=== PATIENT | female | born 1990 | race Caucasian/White ===

== ENCOUNTER 2024-08-27 17:17 | Observation (INO) | payer OTHER ==
[2024-08-27 18:58] LABS: Basophils # (A) 0.05 10*3/uL (0.00-0.10); Basophils % (A) 1.1 %; Eosinophils # (A) 0.04 10*3/uL (0.04-0.35); Eosinophils % (A) 0.8 %; HGB 13.4 g/dL (12.0-15.0); Lymphocytes # (A) 1.23 10*3/uL (0.90-5.00); Lymphocytes % (A) 25.9 %; MCH 30.7 pg (27.0-32.0); MCHC 34.4 g/dL (32.0-37.0); MCV 89.4 fL (80.0-97.0); Mean Platelet Volume 11.3 fL (9.5-12.2); Monocytes # (A) 0.63 10*3/uL (0.20-1.00); Monocytes % (A) 13.3 %; Neutrophils # (A) 2.79 10*3/uL (1.80-7.70); Neutrophils % (A) 58.7 %; Platelet Count 275 10*3/uL (140-440); RBC 4.36 10*6/uL (4.10-5.20); RDW 12.3 % (11.5-14.5); WBC 4.75 10*3/uL (4.50-10.00)
[2024-08-27] MEDS: SODIUM CHLORIDE 0.9% 1,000 ML IV STA (19:05)
[2024-08-27] MEDS: ACETAMINOPHEN TAB 325 MG TAB PO STA (19:05)
[2024-08-27] MEDS: ASPIRIN 81 MG PO STA (19:05)
[2024-08-27 19:12] LABS: ALT 12 U/L (4-34); AST 23 U/L (14-36); African American GFR (CKD) >90 (>60 ml/min/1.73 sqM); Albumin 4.9 g/dL (3.5-5.0); Alkaline Phosphatase 86 U/L (38-126); Anion Gap 10 mmol/L; Blood Urea Nitrogen 18 mg/dL (7-17); Calcium 10.7 mg/dL (8.4-10.2); Carbon Dioxide 27 mmol/L (22-30); Chloride 102 mmol/L (98-107); Glucose 81 mg/dL (74-99); Non-African American GFR(CKD) >90 (>60 ml/min/1.73 sqM); Potassium 4.9 mmol/L (3.5-5.1); Sodium 139 mmol/L (137-145); Total Bilirubin 0.3 mg/dL (0.2-1.3); Total Protein 8.2 g/dL (6.3-8.2)
[2024-08-27 19:21] LABS: NT-Pro-B-Type Natriuretic Pept <20 pg/mL
[2024-08-27 19:23] LABS: INR 0.9 (<1.2); Partial Thromboplastin Time 24.4 sec (22.0-30.0); Prothrombin Time 10.4 sec (10.0-12.5)
--- NOTE | 2024-08-27 20:28 | XR ---
EXAMINATION TYPE: XR chest 2V DATE OF EXAM: 08/27/2024 7:33 PM COMPARISON: Chest radiographs from 08/27/2024 CLINICAL INDICATION: Female, 34 years old with history of Chest Pain; TECHNIQUE: XR chest 2V Frontal and lateral views of the chest. FINDINGS: Lungs/Pleura: There is no evidence of pleural effusion, focal consolidation, or pneumothorax. Pulmonary vascularity: Unremarkable. Heart/mediastinum: Cardiomediastinal silhouette is unremarkable. Musculoskeletal: No acute osseous pathology. IMPRESSION: No acute cardiopulmonary disease/process. [facility], , 08/27/2024 8:26 PM
[2024-08-27] MEDS ORDERED: NALOXONE 0.4 MG/ML 1 ML VIAL IV PRN (21:00)
[2024-08-27] MEDS ORDERED: ONDANSETRON 4 MG/2 ML VIAL IVP PRN (21:00)
[2024-08-27 21:18] VITALS: RESP 16
[2024-08-27 21:18] LABS: Influenza A Not Detected (Not Detectd); Influenza B Not Detected (Not Detectd); RSV Not Detected (Not Detectd)
--- NOTE | 2024-08-27 21:27 | ED ---
General Adult HPI - General Chief complaint: Chest Pain Stated complaint: Chest Pain/Abnormal Labs Time Seen by Provider: 08/27/24 18:45 Source: patient, RN notes reviewed, old records reviewed Mode of arrival: ambulatory Limitations: no limitations - History of Present Illness Initial comments: Patient is a 34-year-old female presents emergency department complaining of chest pain. States she has had intermittent chest pain over the last week that is left-sided in nature and sharp. Radiation to her left shoulder when it is present. Last for minutes and then resolves on its own. Denies any injuries. Denies any known palliative or provocative factors. Has been dealing with URI symptoms for the last week as well with a nonproductive cough. Somewhat mild bodyaches. Originally seen at urgent care and sent here for further evaluation. They have like her worked up for possible pulmonary embolism. No known sick contacts. Denies any fevers. States she does have a history of anxiety and panic attacks however this is different from that, and that usually she feels chest tightness and is located more centrally in her chest. This is a sharp sensation over the left side of her chest with radiation to the shoulder which is different. Presents for further evaluation at this time. Past medical history of lupus, No significant past medical history for the patient otherwise however does have significant cardiac history in family members, with numerous relatives as well as her mother with early onset CAD requiring CABG and stents. Presents for further evaluation at this time. - Related Data Allergies Allergy/AdvReac Type Severity Reaction Status Date / Time cephalexin [From Keflex] Allergy Rash/Hives Verified 08/27/24 17:36 Review of Systems ROS Statement: Those systems with pertinent positive or pertinent negative responses have been documented in the HPI. Review of Systems: CONST: Denies fever EYES: Denies blurry vision ENT: Denies nasal congestion C/V: Denies current chest pain but does endorse intermittent chest pain RESP: Denies shortness of breath GI: Denies abdominal pain : Denies dysuria SKIN: Denies rash. MSK: Denies joint pain. NEURO: Denies headache ROS Other: All systems not noted in ROS Statement are negative. Past Medical History Additional Past Medical History / Comment(s): Endometriosis History of Any Multi-Drug Resistant Organisms: None Reported Past Surgical History: No Surgical Hx Reported Past Psychological History: Anxiety, Depression Smoking Status: Never smoker Past Alcohol Use History: Occasional Past Drug Use History: None Reported General Exam - General Exam Comments Initial Comments: General: Patient is anxious. HEAD: Normal with no signs of head trauma. EYES: PERRLA, EOMI, conjunctiva normal, no discharge. ENT: Hearing grossly intact, normal oropharynx. RESPIRATORY: Clear breath sounds bilaterally. No wheezes, rales, or rhonchi. C/V: Regular rate and rhythm. S1 and S2 auscultated, no edema, peripheral pulses 2+ and intact throughout ABD: Abd is soft, nontender, nondistended EXT: Normal range of motion, no obvious deformity SKIN: No rashes or lesions observed on exposed skin. NEURO: Alert and oriented x 4. Limitations: no limitations Course Vital Signs 08/27/24 17:32 Temperature 99.0 F Pulse Rate 92 Respiratory 18 Rate Blood Pressure 125/83 O2 Sat by Pulse 100 Oximetry Medical Decision Making - Medical Decision Making Was pt. sent in by a medical professional or institution (, PA, HIGH DENSITY TALC COATER OPERATOR, urgent care, hospital, or retirement...) When possible be specific @ -Sent by urgent care for further evaluation of chest pain Did you speak to anyone other than the patient for history (EMS, parent, family, police, friend...)? What history was obtained from this source @ -No Did you review nursing and triage notes (agree or disagree)? Why? @ -I reviewed and agree with nursing and triage notes Were old charts reviewed (outside hosp., previous admission, EMS record, old EKG, old radiological studies, urgent care reports/EKG's, retirement records)? Report findings @ -No old charts were reviewed Differential Diagnosis (chest pain, altered mental status, abdominal pain women, abdominal pain men, vaginal bleeding, weakness, fever, dyspnea, syncope, he adache, dizziness, GI bleed, back pain, seizure, CVA, palpatations, mental health, musculoskeletal)? @ -Differential Chest Pain: Stable Angina, Unstable Angina, STEMI, NSTEMI Aortic Dissection, Pneumothorax, Musculoskeletal, Esophageal Spasm GERD, Cholecystitis, Pancreatitis, Zoster, this is not meant to be an all-inclusive list. EKG interpreted by me (3pts min.). @ -As above X-rays interpreted by me (1pt min.). @ -Chest x-ray reveals no obvious acute cardiopulmonary process. CT interpreted by me (1pt min.). @ -None done U/S interpreted by me (1pt. min.). @ -None done What testing was considered but not performed or refused? (CT, X-rays, U/S, labs)? Why? @ -None What meds were considered but not given or refused? Why? @ -None Did you discuss the management of the patient with other professionals (professionals i.e. Dr., PA, HIGH DENSITY TALC COATER OPERATOR, lab, RT, psych nurse, director social welfare, manager commission, teacher, chairman & chief executive officer, counter caser)? Give summary @ -Discussed with [facility] Mayra BOOKER who accepted the admission.. This was incidental on my part as I thought they were city call. Omayra notified. I did speak with Dr. Mcneill of [facility] [place] who accepted the admission. Was smoking cessation discussed for >3mins.? @ -No Was critical care preformed (if so, how long)? @ -No Were there social determinants of health that impacted care today? How? (Homelessness, low income, unemployed, alcoholism, drug addiction, transportation, low edu. Level, literacy, decrease access to med. care, long-term, rehab)? @ -No Was there de-escalation of care discussed even if they declined (Discuss DNR or withdrawal of care, Hospice)? DNR status @ -No What co-morbidities impacted this encounter? (DM, HTN, Smoking, COPD, CAD, Cancer, CVA, ARF, Chemo, Hep., AIDS, mental health diagnosis, sleep apnea, morbid obesity)? @ -None Was patient admitted / discharged? Hospital course, mention meds given and route, prescriptions, significant lab abnormalities, going to OR and other pertinent info. @ -Patient presents for chest pain. We will obtain cardiopulmonary workup. Patient currently has no chest pain. She is given 324 mg of aspirin, IV fluids, as well as Tylenol. She was in agreement this plan. Could be related to anxiety as well as recent URI but inconclusive at this time. She does have this significant family medical history. EKG shows no signs of acute ischemia. Chest x-ray unremarkable. X-ray studies remarkable for undetectable troponin. Viral swabs negative. D-dimer within normal limits. BNP undetectable. On reevaluation, I discussed results with patient. She was extremely concerned. Heart score is borderline at 3 points. Concerning her significant family history, as well as her new symptoms that are somewhat more typical although she has not had them here, we admit her to cardiac observation. She was in agreement this plan. I will add on a TSH, as well as an echo. Cardiology donovan miller. I spoke with initially [facility] who I thought was on city call who accepted the patient however patient should be admitted to [facility] [place] [facility] who is on city call. [facility] Omayra was notified of the mistake, and it did contact [facility] [place] [facility] Dr. Mcneill who accepted the admission. Undiagnosed new problem with uncertain prognosis? @ -No Drug Therapy requiring intensive monitoring for toxicity (Heparin, Nitro, Insulin, Cardizem)? @ -No Were any procedures done? @ -No Diagnosis/symptom? @ -Chest pain Acute, or Chronic, or Acute on Chronic? @ -Acute Uncomplicated (without systemic symptoms) or Complicated (systemic symptoms)? @ -Complicated Side effects of treatment? @ -No Exacerbation, Progression, or Severe Exacerbation? @ -No Poses a threat to life or bodily function? How? (Chest pain, [place], [place], pneumonia, PE, COPD, DKA, ARF, appy, cholecystitis, CVA, Diverticulitis, Homicidal, Suicidal, threat to staff... and all critical care pts) @ -Potentially, yes - Lab Data Result diagrams: 08/27/24 18:49 08/27/24 18:49 Lab Results 08/27/24 08/27/24 08/27/24 Range/Units 18:49 18:49 18:49 WBC 4.75 (4.50-10.00) 10*3/uL RBC 4.36 (4.10-5.20) 10*6/uL Hgb 13.4 (12.0-15.0) g/dL Hct 39.0 (37.2-46.3) % MCV 89.4 (80.0-97.0) fL MCH 30.7 (27.0-32.0) pg MCHC 34.4 (32.0-37.0) g/dL Plt Count 275 (140-440) 10*3/uL MPV 11.3 (9.5-12.2) fL Immature Gran % (Auto) 0.2 % Neutrophils % 58.7 % Lymphocytes % 25.9 % Monocytes % 13.3 % Eosinophils % 0.8 % Basophils % 1.1 % Immature Gran # 0.01 (0.00-0.04) 10*3/uL Neutrophils # 2.79 (1.80-7.70) 10*3/uL Lymphocytes # 1.23 (0.90-5.00) 10*3/uL Monocytes # 0.63 (0.20-1.00) 10*3/uL Eosinophils # 0.04 (0.04-0.35) 10*3/uL Basophils # 0.05 (0.00-0.10) 10*3/uL PT 10.4 (10.0-12.5) sec INR 0.9 (<1.2) APTT 24.4 (22.0-30.0) sec D-Dimer 0.24 (<0.60) mg/L FEU Sodium 139 (137-145) mmol/L Potassium 4.9 (3.5-5.1) mmol/L Chloride 102 (98-107) mmol/L Carbon Dioxide 27 (22-30) mmol/L Anion Gap 10 mmol/L BUN 18 H (7-17) mg/dL Creatinine 0.57 (0.52-1.04) mg/dL Est GFR (CKD-EPI)AfAm >90 (>60 ml/min/1.73 sqM) Est GFR (CKD-EPI)NonAf >90 (>60 ml/min/1.73 sqM) Glucose 81 (74-99) mg/dL Calcium 10.7 H (8.4-10.2) mg/dL Magnesium 2.0 (1.6-2.3) mg/dL Total Bilirubin 0.3 (0.2-1.3) mg/dL AST 23 (14-36) U/L ALT 12 (4-34) U/L Alkaline Phosphatase 86 (38-126) U/L Troponin I (0.000-0.034) ng/mL NT-Pro-B Natriuret Pep <20 pg/mL Total Protein 8.2 (6.3-8.2) g/dL Albumin 4.9 (3.5-5.0) g/dL Group A Strep (PCR) (Not Detectd) 08/27/24 08/27/24 Range/Units 18:49 19:46 WBC (4.50-10.00) 10*3/uL RBC (4.10-5.20) 10*6/uL Hgb (12.0-15.0) g/dL Hct (37.2-46.3) % MCV (80.0-97.0) fL MCH (27.0-32.0) pg MCHC (32.0-37.0) g/dL Plt Count (140-440) 10*3/uL MPV (9.5-12.2) fL Immature Gran % (Auto) % Neutrophils % % Lymphocytes % % Monocytes % % Eosinophils % % Basophils % % Immature Gran # (0.00-0.04) 10*3/uL Neutrophils # (1.80-7.70) 10*3/uL Lymphocytes # (0.90-5.00) 10*3/uL Monocytes # (0.20-1.00) 10*3/uL Eosinophils # (0.04-0.35) 10*3/uL Basophils # (0.00-0.10) 10*3/uL PT (10.0-12.5) sec INR (<1.2) APTT (22.0-30.0) sec D-Dimer (<0.60) mg/L FEU Sodium (137-145) mmol/L Potassium (3.5-5.1) mmol/L Chloride (98-107) mmol/L Carbon Dioxide (22-30) mmol/L Anion Gap mmol/L BUN (7-17) mg/dL Creatinine (0.52-1.04) mg/dL Est GFR (CKD-EPI)AfAm (>60 ml/min/1.73 sqM) Est GFR (CKD-EPI)NonAf (>60 ml/min/1.73 sqM) Glucose (74-99) mg/dL Calcium (8.4-10.2) mg/dL Magnesium (1.6-2.3) mg/dL Total Bilirubin (0.2-1.3) mg/dL AST (14-36) U/L ALT (4-34) U/L Alkaline Phosphatase (38-126) U/L Troponin I <0.012 (0.000-0.034) ng/mL NT-Pro-B Natriuret Pep pg/mL Total Protein (6.3-8.2) g/dL Albumin (3.5-5.0) g/dL Group A Strep (PCR) NOT DETECTED (Not Detectd) - EKG Data -: EKG Interpreted by Me EKG Comments: 12-lead Electrocardiogram Interpretation Note EKG was reviewed and interpreted by myself. 12-lead ECG performed at 1812 is interpreted by me as revealing normal sinus rhythm at a rate of 96 beats per minute. [place] is normal. [place] interval is 172 ms, QRS duration is 97 ms, QTc is 398 ms.. There were no ST or T wave abnormalities to suggest myocardial ischemia or injury. R wave progression across the precordium was satisfactory. By my interpretation this EKG is non-diagnostic for acute ischemia. Disposition Clinical Impression: Chest pain Disposition: ADMITTED IP TO THIS HOSP Condition: Stable Referrals: Nonstaff,Physician [Primary Care Provider] - 1-2 days Time of Disposition: 21:00
--- NOTE | 2024-08-27 23:06 | P.HPIM ---
History of Present Illness H&P Date: 08/27/24 Chief Complaint: chest pain The patient is a 34 yo female with a history of Lupus diagnosed about 1 year ago. The patient states that over the last month she has had cough productive of brown sputum. She had noticed intermittent dyspnea and fevers. The patient denies relationship to food. The patient states that she has had low energy her chest pain radiates to her left shoulder. The patient was seen by her PCP ther was concern for a pneumonia so patient was seen at urgent care she was tachycardic by report to be in the 140's. The patient was referred to the emergency room. The initial work up was negative the patient still felt dyspneic and dhort of breth. She is concerned because of her family history which includes multiple family members with cardiac problems. The patient's mother had a recent CABG she was hospitalized for further workup and management Review of Systems Cardiovascular: Reports chest pain, Reports rapid heart beat, Reports shortness of breath Respiratory: Reports cough with sputum Integumentary: Reports rash Past Medical History Additional Past Medical History / Comment(s): Endometriosis History of Any Multi-Drug Resistant Organisms: None Reported Past Surgical History: No Surgical Hx Reported Past Psychological History: Anxiety, Depression Smoking Status: Never smoker Past Alcohol Use History: Occasional Past Drug Use History: None Reported Medications and Allergies Allergies Allergy/AdvReac Type Severity Reaction Status Date / Time cephalexin [From Keflex] Allergy Rash/Hives Verified 08/27/24 17:36 Physical Exam Vitals: Vital Signs Temp Pulse Resp BP Pulse Ox 08/27/24 21:12 97.7 F 89 16 138/99 97 08/27/24 17:32 99.0 F 92 18 125/83 100 Intake and Output 08/27/24 08/27/24 08/27/24 06:59 14:59 22:59 Other: Weight 54.431 kg - Constitutional General appearance: average body habitus, cooperative - Respiratory Respiratory: bilateral: CTA - Cardiovascular Rhythm: regular - Gastrointestinal General gastrointestinal: normal bowel sounds - Integumentary Integumentary: normal - Neurologic Neurologic: CNII-XII intact Results CBC & Chem 7: 08/27/24 18:49 08/27/24 18:49 Labs: Abnormal Lab Results - Last 24 Hours (Table) 08/27/24 Range/Units 18:49 BUN 18 H (7-17) mg/dL Calcium 10.7 H (8.4-10.2) mg/dL Chest x-ray: report reviewed Assessment and Plan (1) Chest pain Narrative/Plan: dicussed with ED provider, chest pain R/O UT, given the duration of symptoms will check CT rule out P.E, evaluate for infection, Oxygen support, Cardiology consult Current Visit: Yes Status: Acute Code(s): R07.9 - CHEST PAIN, UNSPECIFIED SNOMED Code(s): 25561207 (2) Dyspnea Narrative/Plan: rule out infection given the productive sputum Current Visit: Yes Status: Acute Code(s): R06.00 - DYSPNEA, UNSPECIFIED SNOMED Code(s): 205437746 (3) Lupus (systemic lupus erythematosus) Narrative/Plan: continue home regimen Current Visit: Yes Status: Acute Code(s): M32.9 - SYSTEMIC LUPUS ERYTHEMATOSUS, UNSPECIFIED SNOMED Code(s): 44840233 Plan: Echo, CTA, Oxygen support, serial enzymes, home meds, Cardiology consult
--- NOTE | 2024-08-27 23:50 | CT ---
EXAM: CT Angiography Chest With Intravenous Contrast CLINICAL HISTORY: ITS.REASON CT Reason: chest pain TECHNIQUE: Axial computed tomographic angiography images of the chest with intravenous contrast. CTDI is 10.1 mGy and DLP is 244.9 mGy-cm. This CT exam was performed using one or more of the following dose reduction techniques: automated exposure control, adjustment of the mA and/or kV according to patient size, and/or use of iterative reconstruction technique. MIP reconstructed images were created and reviewed. COMPARISON: No relevant prior studies available. FINDINGS: Pulmonary arteries: Unremarkable. No pulmonary embolism. Aorta: No acute findings. No thoracic aortic aneurysm. Lungs: Unremarkable. No mass. No consolidation. Pleural space: Unremarkable. No significant effusion. No pneumothorax. Heart: Unremarkable. No cardiomegaly. No significant pericardial effusion. No evidence of RV dysfunction. Bones/joints: No acute fracture. No dislocation. Soft tissues: Unremarkable. Lymph nodes: Unremarkable. No enlarged lymph nodes. IMPRESSION: Normal chest CTA. No pulmonary embolism.
[2024-08-28] MEDS: ACETAMINOPHEN TAB 325 MG TAB PO PRN (00:38)
[2024-08-28 03:30] LABS: Basophils # (A) 0.02 10*3/uL (0.00-0.10); Basophils % (A) 0.5 %; Eosinophils # (A) 0.07 10*3/uL (0.04-0.35); Eosinophils % (A) 1.8 %; HCT 36.3 % (37.2-46.3); HGB 12.2 g/dL (12.0-15.0); Lymphocytes # (A) 1.65 10*3/uL (0.90-5.00); MCH 30.3 pg (27.0-32.0); MCHC 33.6 g/dL (32.0-37.0); MCV 90.3 fL (80.0-97.0); Mean Platelet Volume 11.1 fL (9.5-12.2); Monocytes % (A) 12.7 %; Neutrophils # (A) 1.68 10*3/uL (1.80-7.70); Neutrophils % (A) 42.7 %; Platelet Count 236 10*3/uL (140-440); RBC 4.02 10*6/uL (4.10-5.20); RDW 12.3 % (11.5-14.5); WBC 3.93 10*3/uL (4.50-10.00)
[2024-08-28 03:55] LABS: ALT 10 U/L (4-34); AST 19 U/L (14-36); African American GFR (CKD) >90 (>60 ml/min/1.73 sqM); Alkaline Phosphatase 66 U/L (38-126); Anion Gap 9 mmol/L; Blood Urea Nitrogen 12 mg/dL (7-17); Calcium 9.7 mg/dL (8.4-10.2); Carbon Dioxide 22 mmol/L (22-30); Chloride 105 mmol/L (98-107); Glucose 84 mg/dL (74-99); Non-African American GFR(CKD) >90 (>60 ml/min/1.73 sqM); Potassium 3.9 mmol/L (3.5-5.1); Sodium 136 mmol/L (137-145); Total Bilirubin 0.4 mg/dL (0.2-1.3); Total Protein 6.8 g/dL (6.3-8.2)
--- NOTE | 2024-08-28 10:28 | P.CRDCN ---
History of Present Illness History of present illness: HISTORY OF PRESENT ILLNESS: This is a 34-year-old female with a past medical history significant for endometriosis. Patient does not follow with a helper maintenance cleaning. We have been asked to see the patient in consultation for chest pain. Patient examined at the bedside. Patient states for the past month she has been feeling unwell and dealing with a cold. She states about 2 weeks ago she went to urgent care and was placed on antibiotics that she was having brown sputum production. She s tates on Tuesday she started having chest discomfort. She states she was unable to get up and move around due to the pain. She states that sometimes the pain radiated into her left arm. She also reports feeling flushed and hot in the face. She reports feeling short of breath. She states the pain will last anywhere from 1 to 5 minutes. She states that yesterday she went to urgent care because she had a fever. She was having chest pains yesterday as well. Her heart rate was noted to be in the 140s at urgent care per patient. She was directed to come to the emergency room for further evaluation. Patient states that her chest feels tight this morning. She states the pain is not worse with deep inspiration or chest wall palpation. She reports a family history of premature coronary artery disease in her mother side. She states her mother just recently had triple bypass surgery. DIAGNOSTICS: - EKG reveals sinus mechanism with no signs of acute ischemia - Chest xray negative for acute process - Chest CTA: Negative for pulmonary embolism - Laboratory data: WBC 3.93. Hemoglobin 12.2. Platelet count 236. Sodium 136. Potassium 3.9. BUN 12. Creatinine 0.52. Troponin negative x 3. TSH 1.320. - Current home cardiac medications include none. - No previous echocardiogram, stress test, or cardiac catheterization available in EMR for review REVIEW OF SYSTEMS: At the time of my exam: CONSTITUTIONAL: Denies fever or chills. HEENT: Denies blurred vision, vision changes, or eye pain. Denies hemoptysis CARDIOVASCULAR: Denies chest pain. Denies orthopnea. Denies PND. Denies palpitations RESPIRATORY: Denies shortness of breath. GASTROINTESTINAL: Denies abdominal pain. Denies nausea or vomiting. HEMATOLOGIC: Denies bleeding disorders. GENITOURINARY: Denies any blood in urine. SKIN: Denies pruitis. Denies rash. PHYSICAL EXAM: VITAL SIGNS: Reviewed. GENERAL: Well-developed in no acute distress. HEENT: Head is normocephalic. Pupils are equal, round. Sclerae anicteric. Mucous membranes of the mouth are moist. Neck supple. No JVD or thyromegaly LUNGS: Respirations even and unlabored. Lungs essentially clear to auscultation bilaterally. HEART: Regular rate and rhythm. S1 and S2 heard. ABDOMEN: Soft. Nondistended. Nontender. EXTREMITIES: Normal range of motion. No clubbing or cyanosis. Peripheral pulses intact. No lower extremity edema NEUROLOGIC: Awake and alert. Oriented x 3. ASSESSMENT: Chest pain, troponin negative x 3 Upper respiratory infection with fever Endometriosis PLAN: An acute coronary event has been ruled out Obtain 2D echo to assess cardiac structure and function Patient to undergo stress echocardiogram today If negative, patient may be discharged home from a cardiac standpoint Nurse practitioner note has been reviewed by physician. Signing provider agrees with the documented findings, assessment, and plan of care documented by [employer] as a scribe. Past Medical History Additional Past Medical History / Comment(s): Endometriosis, Lupus (Dx 2023) History of Any Multi-Drug Resistant Organisms: None Reported Past Surgical History: No Surgical Hx Reported Additional Past Surgical History / Comment(s): laproscopyx3 last 2017 Past Anesthesia/Blood Transfusion Reactions: Previous Problems w/ Anesthesia, Postoperative Nausea & Vomiting (PONV) Additional Past Anesthesia/Blood Transfusion Reaction / Comment(s): patient stating, she has had issues when waking up from anesthesia including incontinence, difficulty waking up and N/V. Needs to be be premedicated before surgery. Past Psychological History: Anxiety, Depression Smoking Status: Never smoker Past Alcohol Use History: Occasional Past Drug Use History: None Reported Medications and Allergies Home Medications Medication Instructions Recorded Confirmed Type Hydroxychloroquine Sulfate 200 mg PO DAILY 08/28/24 08/28/24 History [Plaquenil] QUEtiapine [SEROquel] 100 mg PO HS 08/28/24 08/28/24 History Allergies Allergy/AdvReac Type Severity Reaction Status Date / Time cephalexin [From Keflex] Allergy Rash/Hives Verified 08/28/24 08:35 Physical Exam Vitals: Vital Signs Temp Pulse Pulse Resp BP BP Pulse Ox 08/28/24 01:56 16 08/28/24 00:02 97.4 F L 92 15 120/78 99 08/27/24 23:52 88 16 99 08/27/24 21:12 97.7 F 89 16 138/99 97 08/27/24 17:32 99.0 F 92 18 125/83 100 Intake and Output 08/27/24 08/28/24 08/28/24 22:59 06:59 14:59 Other: Voiding Method Toilet # Voids 2 Weight 54.431 kg 54.431 kg Results 08/28/24 03:16 08/28/24 03:16 Cardiac Enzymes 08/27/24 08/27/24 08/28/24 Range/Units 18:49 18:49 00:09 AST 23 (14-36) U/L Troponin I <0.012 <0.012 (0.000-0.034) ng/mL 08/28/24 08/28/24 Range/Units 03:16 03:16 AST 19 (14-36) U/L Troponin I <0.012 (0.000-0.034) ng/mL Coagulation 08/27/24 Range/Units 18:49 PT 10.4 (10.0-12.5) sec APTT 24.4 (22.0-30.0) sec CBC 08/27/24 08/28/24 Range/Units 18:49 03:16 WBC 4.75 3.93 L (4.50-10.00) 10*3/uL RBC 4.36 4.02 L (4.10-5.20) 10*6/uL Hgb 13.4 12.2 (12.0-15.0) g/dL Hct 39.0 36.3 L (37.2-46.3) % Plt Count 275 236 (140-440) 10*3/uL Comprehensive Metabolic Panel 08/27/24 08/28/24 Range/Units 18:49 03:16 Sodium 139 136 L (137-145) mmol/L Potassium 4.9 3.9 (3.5-5.1) mmol/L Chloride 102 105 (98-107) mmol/L Carbon Dioxide 27 22 (22-30) mmol/L BUN 18 H 12 (7-17) mg/dL Creatinine 0.57 0.52 (0.52-1.04) mg/dL Glucose 81 84 (74-99) mg/dL Calcium 10.7 H 9.7 (8.4-10.2) mg/dL AST 23 19 (14-36) U/L ALT 12 10 (4-34) U/L Alkaline Phosphatase 86 66 (38-126) U/L Total Protein 8.2 6.8 (6.3-8.2) g/dL Albumin 4.9 4.0 (3.5-5.0) g/dL Current Medications Generic Name Dose Route Start Last Admin Trade Name Freq PRN Reason Stop Dose Admin Acetaminophen 650 mg 08/27/24 21:00 08/28/24 00:38 Acetaminophen Tab 325 Mg Tab PO 650 mg Q6HR PRN Administration Mild Pain or Fever > 100.5 Naloxone HCl 0.2 mg 08/27/24 21:00 Naloxone 0.4 Mg/Ml 1 Ml Vial IV Q2M PRN Opioid Reversal Ondansetron HCl 4 mg 08/27/24 21:00 Ondansetron 4 Mg/2 Ml Vial IVP Q8HR PRN Nausea And Vomiting Intake and Output 08/27/24 08/28/24 08/28/24 22:59 06:59 14:59 Other: Voiding Method Toilet # Voids 2 Weight 54.431 kg 54.431 kg 08/28/24 03:16 08/28/24 03:16
--- NOTE | 2024-08-28 11:14 | CA ---
Transthoracic Echo Report Name: Florencia Barrera Age: 34 Gender: F : 1990 Exam Date: 08/28/2024 08:46 Exam Location: [facility] Ht (in): 64 Wt (lb): 120 Ordering Physician: Nikko Izquierdo MD Attending/Referring Phys: Employee Benefits Specialist Jessika Andersen RDCS Procedure CPT: Indications: Chest Pain Cardiac Hx: Technical Quality: Good Contrast 1: Total Dose (mL): Contrast 2: Total Dose (mL): MEASUREMENTS (Male / Female) Normal Values 2D ECHO LV Diastolic Diameter PLAX 3.6 cm 4.2 - 5.9 / 3.9 - 5.3 cm LV Systolic Diameter PLAX 2.5 cm IVS Diastolic Thickness 0.8 cm 0.6 - 1.0 / 0.6 - 0.9 cm LVPW Diastolic Thickness 0.8 cm 0.6 - 1.0 / 0.6 - 0.9 cm LV Relative Wall Thickness 0.4 RV Internal Dim ED PLAX 2.1 cm LVOT Diameter 1.7 cm LA Systolic Diameter LX 2.9 cm 3.0 - 4.0 / 2.7 - 3.8 cm LV Diastolic Volume MOD BP 79.4 cm??? 67 - 155 / 56 - 104 cm??? LV Systolic Volume MOD BP 28.2 cm??? - / 19 - 49 cm??? LV Ejection Fraction MOD BP 64.4 % >= 55 % LV Cardiac Index MOD BP 2776.9 cm???/min???m??? LV Diastolic Volume MOD 4C 72.4 cm??? LV Systolic Volume MOD 4C 26.4 cm??? LV Ejection Fraction MOD 4C 63.5 % LV Cardiac Index MOD 4C 2494.1 cm???/min???m??? LV Diastolic Length 4C 7.4 cm LV Systolic Length 4C 5.8 cm LV Diastolic Volume MOD 2C 77.6 cm??? LV Systolic Volume MOD 2C 29.4 cm??? LV Ejection Fraction MOD 2C 62.1 % LV Cardiac Index MOD 2C 2613.5 cm???/min???m??? LV Diastolic Length 2C 8.3 cm LV Systolic Length 2C 6.0 cm LA Volume 36.3 cm??? 18 - 58 / 22 - 52 cm??? LA Volume Index 23.2 cm???/m??? 16 - 28 cm???/m??? DOPPLER MV Area PHT 4.2 cm??? Mitral E Point Velocity 82.3 cm/s Mitral A Point Velocity 67.5 cm/s Mitral E to A Ratio 1.2 MV Deceleration Time 178.7 ms Right Atrial Pressure 5.0 mmHg FINDINGS Left Ventricle Left ventricular ejection fraction is estimated at 55-60 %. Normal Left ventricular size, wall thickness, systolic function with no obvious regional wall motion abnormalities. Right Ventricle Normal right ventricular size and function. Unable to estimate the right ventricular systolic pressure. Right Atrium Normal right atrial size. Left Atrium Normal left atrial size. Mitral Valve Structurally normal mitral valve. No mitral stenosis. Trace mitral regurgitation. Aortic Valve Trileaflet aortic valve. No aortic regurgitation. No aortic stenosis. Tricuspid Valve Structurally normal tricuspid valve. No tricuspid prolapse. No tricuspid stenosis. Trace tricuspid regurgitation. Pulmonic Valve Structurally normal pulmonic valve. No pulmonic stenosis. No pulmonic regurgitation. Pericardium No pericardial effusion. Aorta Normal size aortic root and proximal ascending aorta. CONCLUSIONS 1. Normal left ventricular size and systolic function 2. Trace mitral and tricuspid regurgitation Previewed by: Dr. Duane Gonzalez MD (Electronically Signed) Final Date: 28 August 2024 11:14
--- NOTE | 2024-08-28 12:37 | CA ---
Stress Echo Report Florencia Barrera Age: 34 Gender: F : 1990 Exam Date: 08/28/2024 11:53 Exam Location: [facility] Ht (in): 64 Wt (lb): 120 Ordering Physician: Kaykay Vaz Referring Physician: [id number] Educational Sign Language Interpreter: Marci Pedraza RDCS Technologist Procedure CPT: Indication: CP ICD-9 Codes: Rhythm: Patient History: Chest pain and family history of heart disease Cardiac Medications: SEE CHART,,,,, Medications in past 24 hours: Contrast: Stress Results Protocol: Michael Total dose(mL): Exercise Duration (min:sec): 11:[address] Depression (mm): Angina Score: Dumont Score: METS: 12.1 Resting HR: 90 Resting BP: 129 / 78 Peak HR: 168 Peak BP: 158 / 63 Max Predicted HR: 186 90 % Max Predicted HR Target HR: 158 Double Product: [id number] Stress Summary: The patient's target heart rate was achieved The hemodynamic response to exercise was normal BP Response: Reason for Termination: MAX EXERTION/TARGET HR Cardiac Symptoms: NO SYMPTOMS ECG Analysis Resting ECG: Normal sinus rhythm, normal ECG Stress EC.[address] segment depression Arrhythmia: None Echo Analysis Resting Echo: Normal resting echocardiogram. Peak Echo Analysis: Normal wall thickening and motion with decrease in the cavity size MEASUREMENTS (Male/Female) Normal Values CONCLUSIONS Good exercise tolerance with borderline EKG changes Normal stress echocardiogram with no evidence of stress-induced ischemia Dr. Duane Gonzalez MD (Electronically Signed) Final Date: 28 August 2024 12:36
[2024-08-28 14:08] VITALS: BP 119/76; PULSE 102; TEMP 98.6
[2024-08-28 14:53] LABS: Chol/HDL Ratio 2.03 Ratio; LDL Cholesterol,Calculated 63.5 mg/dL (0.0-131.0); VLDL Calculation 12.56 mg/dL (5.00-40.00)
--- NOTE | 2024-08-28 18:43 | P.DS ---
Providers Date of admission: 08/27/24 21:01 Expected date of discharge: 08/28/24 Attending physician: Ernestine Mcneill MD Consults: 08/27/24 21:00 Consult Physician Routine Consulting Provider: [facility] Consult Reason/Comments: chest pain Do you want consulting provider notified?: Yes Primary care physician: Physician Nonstaff Hospital Course: Discharge Diagnosis: Chest pain and palpitation Shortness of breath and cough Lupus Hospital Course: Patient is a pleasant 34-year-old female with a past medical history of lupus. She presented to the emergency department with a chief complaint of cough, shortness of breath, chest pain, palpitations, and overall fatigue x 1 month. Upon arrival to our facility, patient underwent evaluation in the emergency department. Vital signs upon arrival showed blood pressure 125/83, heart rate 92, respiratory rate 18, temp 99.0 F, and SpO2 of 100% on room air. EKG was completed showing sinus rhythm at 96 bpm with no significant T wave or ST abnormality showing no signs of acute ischemia upon personal interpretation. Chest x-ray completed negative for acute cardiopulmonary process. Labs completed and reviewed. CBC unremarkable. Coagulation profile normal findings. D-dimer was negative at 0.24. BMP showing mild prerenal azotemia with BUN of 18 otherwise normal findings. Calcium was slightly elevated at 10.7. Magnesium 2.0. Liver profile unremarkable. Troponin was negative at less than 0.012. proBNP was less than 20. TSH normal findings at 1.320. Patient was admitted under our services with consultation to cardiology. CTA chest was completed negative for pulmonary emboli showing normal chest CTA. Troponins were trended all negative at less than 0.012 x 3 draws. Echocardiogram was completed showing a preserved EF of 55 to 60% with trace mitral and tricuspid regurgitation. Patient was evaluated by cardiology and taken for cardiac stress test showing good exercise tolerance with borderline EKG changes with a normal stress echocardiogram no evidence of stress-induced ischemia. Discussed in depth with cardiac MALTED MILK SUPERVISOR, patient cleared from cardiac perspective for discharge. Spoke with patient and spouse at bedside updating them on results and plans for discharge. Patient encouraged that she will need to follow-up outpatient with her PCP for further testing. Patient was tearful stating she has felt fatigued with multiple complaints over the past month and feels as though she is getting the run around. Patient informed no further workup from inpatient hospital standpoint and further workup may be completed outpatient through her PCP. After discharge patient did request evaluation by ENT and was provided with outpatient contact information for follow-up. Patient is medically optimized for discharge at this time encouraged to follow-up outpatient with her PCP in 1 to 2 days and with field assessor in 1 week. Physical exam: Patient seen and examined at bedside. Vital signs upon discharge showing blood pressure 119/76, heart rate 102, respir atory rate 16, temp 98.6 F, SpO2 100% on room air.. General: Nontoxic, no distress and appears stated age. Derm: Skin warm and dry, normal coloration for ethnicity. Head: Atraumatic, normocephalic and symmetric. Eyes: EOM's intact, no lid lag, and anicteric sclera Mouth: no lip lesions, mucus membranes moist Cardiovascular: regular rate and rhythm with normal S1S2, no murmur, positive posterior tibial pulses bilaterally, and cap refill < 2 seconds. Lungs: Respirations even, regular, and unlabored on room air. Lungs CTA bilaterally, no rhonchi, no rales, no wheezing, and no accessory muscle usage. Abdominal: soft, nontender to palpation, no guarding, no appreciable organomegaly Ext: ROM intact. No gross muscle atrophy, no edema, no contractures Neuro: Speech clear, face symmetrical and CN II-XII grossly intact with no noted focal neuro deficits Psych: Alert and oriented to person, place, time, and situation. Appropriate and pleasant affect. A total of 34 minutes of time were spent preparing this complex discharge summary. Pt was discharged on 08/28/2024 at 12:58 PM. Patient was seen independently by Nurse Practitioner. This document was prepared using [employer] dictation software. Please allow for errors in clam digger while rare they do occur. Paolo Flores NP rendered care for this patient independently, reviewed the findings and plan as documented in the note above. I did not physically speak with or examine the patient on this date. Patient Condition at Discharge: Stable Plan - Discharge Summary Discharge Rx Participant: No New Discharge Prescriptions: Continue Hydroxychloroquine Sulfate [Plaquenil] 200 mg PO DAILY QUEtiapine [SEROquel] 100 mg PO HS Discharge Medication List Hydroxychloroquine Sulfate [Plaquenil] 200 mg PO DAILY 08/28/24 [History] QUEtiapine [SEROquel] 100 mg PO HS 08/28/24 [History] Follow up Appointment(s)/Referral(s): Jose Luis Casas DO [Doctor of Osteopathic Medicine] - 1 Week Nonstaff,Physician [Primary Care Provider] - 1-2 days Celso Miles MD [STAFF PHYSICIAN] - 1 Week Patient Instructions/Handouts: Chest Pain (DC), Heart Palpitations (DC) Activity/Diet/Wound Care/Special Instructions: Activity: As tolerated. Take breaks as needed. Diet: Heart healthy and carb consistent diet. Special Instructions: Take all of your medications as directed and remember to keep all of your doctor's appointments and follow-up as needed. Thank you for allowing us to participate in your care, it was truly a pleasure having you for our patient!!! An appointment has been made at: [place] [address] For Tuesday08/31/24 at 10:15am with their PA Tanesha If you need to change this appointment please call: [phone] Discharge Disposition: HOME SELF-CARE
== END 2024-08-28 15:58 | disposition home or self-care (01) ==
LOC: EC 17:17 → 6NMEDSUR 21:01
PROVIDERS: ADMIT Internal Medicine; ATTEND Internal Medicine
DX: R07.89 Other chest pain (principal); R00.2 Palpitations; J06.9 Acute upper respiratory infection, unspecified; R06.02 Shortness of breath; N80.9 Endometriosis, unspecified; M32.9 Systemic lupus erythematosus, unspecified; F41.9 Anxiety disorder, unspecified; F32.A Depression, unspecified; Z79.899 Other long term (current) drug therapy; Z88.1 Allergy status to other antibiotic agents; Z82.49 Family history of ischemic heart disease and other diseases of the circulatory system
CPT/HCPCS: 96360; 96361; 99285; 36415; 93005; 93306; 93351; 87651; 85379; 83880; 80061; 80053 ×2; 83735; 84443; 84484 ×2; 85025 ×2; 85610; 85730; 87636; 71046; 71275; G0378 ×2; Q9967